=== PATIENT | male | born 1960 | race Caucasian/White ===

== ENCOUNTER → 2016-09-26 | Outpatient (CLI) | payer OTHER, MEDICARE | LOC: MW.CHPM 09:13 | PROVIDERS: ATTEND Anesthesiology | DX: Z51.81 Encounter for therapeutic drug level monitoring (principal); Z79.891 Long term (current) use of opiate analgesic | CPT/HCPCS: 80305 ==

== ENCOUNTER 2016-11-21 16:06 | Emergency (ER) | payer MEDICARE, OTHER ==
[2016-11-21] MEDS ORDERED: Diphtheria,Pertussis(Acell),Tetanus Vaccine 0.5 ML Syringe IM ONE (16:17)
--- NOTE | 2016-11-21 16:28 | EDM.PDOC ---
ED HPI Skin/Rash - General Chief Complaint: Laceration Stated Complaint: CUT THUMB Time Seen by Provider: 11/21/16 16:15 Source: Reports: Patient History Limitations: Reports: No limitations - History of Present Illness INITIAL COMMENTS - FREE TEXT/NARRATIVE: Presents reporting that he was working with a skill saw and cut his right thumb. Unknown tetanus. - Related Data Allergies Allergy/AdvReac Type Severity Reaction Status Date / Time No Known Allergies Allergy Verified 11/21/16 16:13 Home Meds: Ambulatory Orders Medication Instructions Recorded Confirmed Amitriptyline [Elavil] 50 mg PO BEDTIME 12/10/13 11/13/15 Metaxalone [Skelaxin] 800 mg PO QID 12/10/13 11/13/15 tiZANidine [Zanaflex] 2 mg PO DAILY 12/10/13 11/13/15 traMADol [Ultram] 50 mg PO Q4H PRN 12/10/13 11/13/15 Hydrocodone/Acetaminophen [[place] PO Q6HR 11/13/15 5-325] Pregabalin [Lyrica] 1 cap PO 11/13/15 Morphine 15 mg PO BID 11/21/16 11/21/16 Past Medical History HEENT History: Reports: None Cardiovascular History: Reports: Hypertension Respiratory History: Reports: None Gastrointestinal History: Reports: None Genitourinary History: Reports: None Musculoskeletal History: Reports: Neck pain, chronic Psychiatric History: Reports: None Endocrine/Metabolic History: Reports: None - Infectious Disease History Infectious Disease History: Reports: Chicken pox, Measles, Mumps, Shingles - Past Surgical History HEENT Surgical History: Reports: None GI Surgical History: Reports: Bariatric procedure, Cholecystectomy Musculoskeletal Surgical History: Reports: Other (see below) Other Musculoskeletal Surgeries/Procedures:: neck surgery Social & Family History - Family History Family Medical History: Noncontributory HEENT: Reports: None Cardiac: Reports: None - Tobacco Use Smoking Status *Q: Never Smoker Second Hand Smoke Exposure: No - Caffeine Use Caffeine Use: Reports: None - Alcohol Use Days Per Week of Alcohol Use: 0 - Recreational Drug Use Recreational Drug Use: No ED ROS GENERAL - Review of Systems Review Of Systems: ROS reveals no pertinent complaints other than HPI. ED EXAM, SKIN/RASH Exam: See Below General Appearance: alert, no apparent distress Ears: normal external exam Nose: normal inspection Throat/Mouth: Normal inspection Head: atraumatic Respiratory/Chest: no respiratory distress, lungs clear Cardiovascular: normal peripheral pulses GI/Abdominal: soft Back Exam: normal inspection Extremities: other (Right thumb centimeter laceration from the lateral nail bed around over the distal tip and down the palm are surface.) Neurological: alert, oriented Psychiatric: normal affect, normal mood Skin: Warm, Dry, Intact, Normal color, No rash ED SKIN PROCEDURES - Laceration/Wound Repair Right Distal Finger Lac/wound length in cm: 4 Appearance: subcutaneous Distal NVT: neuro & vascular intact Local anesthesia - Lidocaine (Xylocaine): 1% plain Local anesthetic volume: 5cc Skin prep: chlorhexidine (hibiciens) Exploration/Debridement/Repair: wound explored, in a bloodless field, explored to base, minimal debridement Closed with: sutures Suture size: 4-0 # of sutures: 8 Suture type: nylon, interrupted Course - Vital Signs Last Recorded V/S: Last Vital Signs Temp 36.8 C 11/21/16 16:10 Pulse 104 H 11/21/16 16:10 Resp 18 11/21/16 16:10 BP 134/91 H 11/21/16 16:10 Pulse Ox 97 11/21/16 16:10 - Orders/Labs/Meds Orders: Active Orders 24 hr Category Date Time Status Fingers Thumb Rt F5 [CR] Stat Exams 11/21/16 16:15 Ordered Departure - Departure Time of Disposition: 17:34 Disposition: Home, Self-Care 01 Condition: good Clinical Impression: Laceration Referrals: Elias Snow MD [Primary Care Provider] - Treasure Wilson MD [Physician] - Forms: ED Department Discharge Additional Instructions: 1. Keep wound clean and dry. 2. Watch for signs of infection : Redness, swelling, purulent drainage-- report promptly 3. Followup with Dr. Wilson due to open distal tuft fracture 4. Take your antibiotic twice daily for the next week. - My Orders Last 24 Hours: My Active Orders 11/21/16 16:15 Fingers Thumb Rt F5 [CR] Stat - Assessment/Plan Last 24 Hours: My Active Orders 11/21/16 16:15 Fingers Thumb Rt F5 [CR] Stat
[2016-11-21] MEDS ORDERED: Bacitracin Oint 1 GM U/D Packet TOP ONE (17:37)
[2016-11-21 18:02] VITALS: BP 152/97
--- NOTE | 2016-11-22 15:19 | CR ---
EXAM DATE: 11/21/16 PATIENT'S AGE: 56 Patient: JESSICA DUMONT Facility: [place], [place] Site . Site : [id number] Study: XRay Extremity Right thumb [id number]/[id number] 4:42:44 PM Ordering Physician: Doctor Stoll Final Report: INDICATION: Finger pain from table saw laceration TECHNIQUE: 1st Finger radiographs 3 views right COMPARISON: None FINDINGS: Bones: Alignment is normal. A linear fracture is present in the distal 1st phalanx tilt with small adjacent osseous bodies. Joint spaces: The metacarpophalangeal and interphalangeal joints are normal in appearance. Soft tissues: Soft tissue defect in the distal 1st digit is noted. No radiopaque foreign bodies are noted. IMPRESSION: 1. A linear fracture is present in the distal 1st phalanx tilt with small adjacent osseous bodies. Dictated by Ovi Duke MD @ 11/21/2016 4:49:26 PM Dictated by: Ovi Duke MD @ 11/21/2016 16:49:33 (Electronic Signature) Report Signed by Proxy and Original Signed Document filed in the Medical Record. [facility]
== END 2016-11-21 18:01 | disposition home or self-care (01) ==
LOC: MW.ED 16:06
DX: S61.011A Laceration without foreign body of right thumb without damage to nail, initial encounter (principal); I10 Essential (primary) hypertension; Z90.49 Acquired absence of other specified parts of digestive tract; Z98.890 Other specified postprocedural states; Z79.899 Other long term (current) drug therapy; W27.0XXA Contact with workbench tool, initial encounter
CPT/HCPCS: 12002; 73140-26-F5; 73140-F5; 90471; 90715; 99282; 99283-25

== ENCOUNTER → 2016-11-24 | Outpatient (CLI) | payer OTHER, MEDICARE | LOC: MW.CHPM 09:20 | PROVIDERS: ATTEND Anesthesiology | DX: Z51.81 Encounter for therapeutic drug level monitoring (principal); Z79.891 Long term (current) use of opiate analgesic | CPT/HCPCS: 80305 ==

== ENCOUNTER 2017-04-13 13:31 | Emergency (ER) | payer OTHER, MEDICARE ==
[2017-04-13 13:38] VITALS: BP 187/92
[2017-04-13] MEDS ORDERED: Morphine 4 MG/ML Syringe IVPUSH ONE (13:45)
[2017-04-13] MEDS ORDERED: HYDROmorphone 1 MG/ML Syringe IVPUSH ONE (14:34)
--- NOTE | 2017-04-13 15:09 | CR ---
EXAMINATION: Pelvis and bilateral hips HISTORY: Pain COMPARISON: 09/11/2012 TECHNIQUE: AP pelvis and 2 views of the hips FINDINGS: There is no acute osseous abnormality, dislocation, or fracture. The iliopectineal lines ar e intact. The SI joints are symmetric. Mild subchondral sclerosis and cystic change noted within the acetabula bilaterally. Hip joint spaces are grossly preserved. There is mild subchondral cystic mcdermott e also noted within the lateral left femoral head. Mild degenerative changes noted within the lower l umbar spine. IMPRESSION: 1. Mild degenerative changes within the hips bilaterally without acute findings. 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
--- NOTE | 2017-04-13 15:14 | CT ---
EXAMINATION: CT cervical spine HISTORY: Pain COMPARISON: 11/13/2015 TECHNIQUE: Axial CT images obtained through the cervical spine without contrast. Coronal and sagittal reconstructions obtained. FINDINGS: The cervical spinal alignment appears stable. Anterior fusion hardware is noted extending f rom C4 C6. Osseous vertebral body fusion extends from C4 to C7. There is a spinal stimulator device n oted with leads extending from the C2-C3 disc space inferior to C4. Overlying laminectomy changes not ed at these levels. Bone mineralization otherwise appears normal. No fracture or acute osseous abnorm ality demonstrated. There is a prominent right osteophyte disc complex noted at C4-C5 and C6-C7 with at least mild underlying spinal canal stenosis. Mild neural foraminal stenosis noted at multiple leve ls. No bulky cervical lymphadenopathy. The visualized lung apices are clear. Mild degenerative change s noted within the temporomandibular joints. IMPRESSION: 1. Moderate postoperative and degenerative changes noted within the cervical spine without acute find ings. 2. Spinal stimulator device noted extending from C2 to C4 laminectomy changes noted from C3 to C5.
--- NOTE | 2017-04-13 15:20 | CT ---
EXAMINATION: CT lumbar spine without contrast HISTORY: Pain COMPARISON: 08/24/2014 TECHNIQUE: Axial CT images obtained through the lumbar spine without contrast. Coronal and sagittal r econstructions obtained. FINDINGS: There is pronunciation of the normal lumbar lordosis with minimal anterolisthesis of L3 on L4. There is a mild chronic wedge deformity of L1. Chronic bilateral spondylolysis at L3 and chronic spondylolysis of L2 on the left. Prominent facet arthritic changes are noted throughout the lumbar sp ine. Laminectomy changes are noted extending from L3 to L5. The SI joints are symmetric. Bone mineral ization otherwise appears normal. No acute osseous abnormalities demonstrated. There is a moderate di ffuse disc bulge with likely moderate to severe spinal canal stenosis noted at L2-L3. Large diffuse p seudobulge with likely moderate spinal canal stenosis noted at L3-L4. Small diffuse disc bulge with a t least [id number] spinal canal stenosis noted at L4-L5. IMPRESSION: 1. No acute findings demonstrated within the lumbar spine. 2. Prominent postoperative and degenerative changes noted within the lumbar spine. This is most promi nent at L2-L3.
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
== END 2017-04-13 15:58 | disposition home or self-care (01) ==
LOC: MW.ED 13:31
DX: M54.5 Low back pain (principal); M54.2 Cervicalgia; Z79.899 Other long term (current) drug therapy; I10 Essential (primary) hypertension; Z90.49 Acquired absence of other specified parts of digestive tract; Z98.84 Bariatric surgery status; V43.92XA Unspecified car occupant injured in collision with other type car in traffic accident, initial encounter
CPT/HCPCS: 72125; 72131; 73521; 96374; 96375; 99285; J1170; J2270; 99283

== ENCOUNTER 2017-05-01 11:25 | Day surgery (SDC) | payer OTHER ==
[~2017-05-01 11:25] MED LIST: Betamethasone Acetate/Betamethasone Sod Phosphate 30 MG/5 ML MDV ONE; Iopamidol 408 MG/ML 50 ML SDV ONE; Lidocaine 2% 5 ML SDV ONE; Ropivacaine 0.5% 5 MG/ML 30 ML SDV ONE
--- NOTE | 2017-05-01 19:22 | OR ---
SURGEON: Josi Ayala D.O. DATE OF PROCEDURE: 05/01/2017 OR STAFF PRESENT: 1. Aye Wong RN. 2. Moises Ariza RN. WOUND CLASSIFICATION: I. PREOPERATIVE DIAGNOSES: Failed back surgery syndrome, low back pain with radiculopathy, chronic pain syndrome. POSTOPERATIVE DIAGNOSES: Failed back surgery syndrome, low back pain with radiculopathy, chronic pain syndrome. PROCEDURES PERFORMED: 1. Caudal epidural steroid injection. 2. Fluoroscopic guidance for needle placement. 3. Local with oral Valium for sedation. SCREENING QUESTIONS: The patient answered "no" to all of the following questions: 1. Are you allergic to latex? 2. Do you have a bleeding disorder? 3. Do you have any current local or systemic infections? 4. Are you taking any anti-inflammatories or blood thinners? 5. Do you have any joint replacements, heart valve replacements, or a pacemaker? DESCRIPTION OF PROCEDURE: The patient had the procedure thoroughly explained including all possible risks, benefits and alternatives. Consent was signed in my clinic indicating understanding and willingness to proceed. The patient presented to [facility] and was escorted to the dressing room to disrobe and change into a hospital gown. Preoperative vital signs were taken and stable. The patient reported that Valium was taken prior to the procedure. The patient was brought back to the procedure room and placed in the prone position on the procedure room table. A pillow was placed under the hips in order to flatten the lumbar lordosis. The back was prepped with ChloraPrep and sterilely draped. All personnel in the operating room were dressed in appropriate attire including surgical scrubs, head and shoe covers. This was to ensure sterility while in the treatment room. During the time fluoroscopy was in use, all personnel in the operating room wore lead turner with thyroid collars. Sterile technique was used throughout the procedure. The patient was awake and conversant throughout the procedure. There was no evidence of infection at the site of needle insertion. Skeletal landmarks were identified under fluoroscopy for the caudal epidural. Skin was anesthetized with 2% lidocaine with a sterile 27-gauge 1.5 inch needle. Then a 20-gauge Tuohy epidural needle was placed in the epidural space with loss of resistance technique under fluoroscopic guidance. No heme, cerebrospinal fluid, or paresthesias were noted. Isovue-200 contrast dye was injected in 0.2 cubic centimeter increments and seen to outline the epidural space in both AP and lateral views. There was no intravascular flow pattern observed under live fluoroscopy. Then 12 milligrams of Celestone was slowly injected after negative aspiration. The patient tolerated the procedure well. Vital signs were stable during and after the procedure. The staff escorted the patient to the recovery area and the patient was released in stable condition after a brief stay in the recovery room monitored by the nurse. The patient was given both oral and written discharge and follow up instructions with recommendation to follow up given for 2-3 weeks. The patient voiced understanding including understanding of those signs and symptoms that would require emergency care. The patient knows how to contact the office if there are any additional problems or questions in the meantime. PREOPERATIVE PAIN: 8/10. POSTOPERATIVE PAIN: 7/10. PLAN: Followup in the Pain Clinic in 3 weeks. TABITHA / KS[place] /[id number] JHONY
== END 2017-05-01 12:53 | disposition home or self-care (01) ==
LOC: MW.SDS 11:25
PROVIDERS: ATTEND Anesthesiology
DX: G89.4 Chronic pain syndrome (principal); M54.5 Low back pain; M54.16 Radiculopathy, lumbar region; M96.1 Postlaminectomy syndrome, not elsewhere classified; Z79.891 Long term (current) use of opiate analgesic; Z88.8 Allergy status to other drugs, medicaments and biological substances; Z79.899 Other long term (current) drug therapy; Z98.890 Other specified postprocedural states; F10.20 Alcohol dependence, uncomplicated; F15.90 Other stimulant use, unspecified, uncomplicated
CPT/HCPCS: 62323; J0702; J2795; Q9966

== ENCOUNTER 2017-05-22 10:58 | Day surgery (SDC) | payer OTHER ==
[~2017-05-22 10:58] MED LIST changes: -Betamethasone Acetate/Betamethasone Sod Phosphate 30 MG/5 ML MDV ONE; -Iopamidol 408 MG/ML 50 ML SDV ONE; +Lactated Ringers 1,000 ML IV SCH; -Lidocaine 2% 5 ML SDV ONE; -Ropivacaine 0.5% 5 MG/ML 30 ML SDV ONE; +Sodium Chloride 0.9% 10 ML Syringe FLUSH PRN; +Sodium Chloride 0.9% 2.5 ML Syringe FLUSH PRN
[2017-05-22] MEDS ORDERED: Lidocaine 2% 5 ML SDV ONE (13:00)
[2017-05-22] MEDS ORDERED: Propofol 200 MG/20 ML SDV ONE (13:01)
[2017-05-22] MEDS ORDERED: Midazolam 1 MG/ML 2 ML SDV ONE (13:01)
[2017-05-22] MEDS ORDERED: fentaNYL 100 MCG/2 ML SDV ONE ×2 (13:01→13:04)
[2017-05-22] MEDS ORDERED: Ondansetron 4 MG/2 ML SDV ONE (13:06)
[2017-05-22] MEDS ORDERED: Ketorolac 30 MG/ML SDV ONE (13:06)
--- NOTE | 2017-05-22 13:48 | PCM.PREANE ---
Preanesthetic Assessment - Procedure Proposed Procedure: Cystoscopy - Anesthesia/Transfusion/Family Hx Anesthesia History: Prior Anesthesia Without Reaction Family History of Anesthesia Reaction: No Transfusion History: Prior Transfusion Without Reaction Additional History: Complicated neuro hx with old cervical surgeries, electrostimulator (MRI compatible), and recent lumbar injury with a surgical diagnosis; and discovery of hematuria. - Review of Systems General: Other (Pain - lumbar) Pulmonary: No Symptoms Cardiovascular: Other (HTN - treated) Gastrointestinal: No Symptoms Neurological: Paresthesia, Pre-Existing Deficit, Gait Disturbance Other: Reports: Neck Pain, Anxiety - Physical Assessment NPO Status Date: 05/21/17 NPO Status Time: 21:30 O2 Sat by Pulse Oximetry: 99 Respiratory Rate: 16 Vital Signs: Last Vital Signs Temp 98.2 F 05/22/17 11:42 Pulse 86 05/22/17 11:42 Resp 16 05/22/17 11:42 BP 183/94 H 05/22/17 11:42 Pulse Ox 99 05/22/17 11:42 Height: 5 ft 10 in Weight: 198 lb ASA Class: 3 Mental Status: Alert & Oriented x3 Airway Class: Mallampati = 3 Dentition: Reports: [place](s) (implanted teeth) Thyro-Mental Finger Breadths: 3 Mouth Opening Finger Breadths: 2 ROM/Head Extension: Limited/Partial Lungs: Clear to Auscultation, Normal Respiratory Effort Cardiovascular: Regular Rate, Regular Rhythm, No Murmurs - Allergies Allergies/Adverse Reactions: Allergies Allergy/AdvReac Type Severity Reaction Status Date / Time No Known Allergies Allergy Verified 12/03/16 12:30 - Blood Blood Available: No Product(s) Available: None - Acknowledgements Anesthesia Type Planned: General Anesthesia (vs MAC; possible LMA) Pt an Appropriate Candidate for the Planned Anesthesia: Yes Alternatives and Risks of Anesthesia Discussed w Pt/Guardian: Yes Pt/Guardian Understands and Agrees with Anesthesia Plan: Yes PreAnesthesia Questionnaire HEENT History: Reports: Other (See Below) Other HEENT History: wears glasses, has dental implants Cardiovascular History: Reports: Hypertension Respiratory History: Reports: None Gastrointestinal History: Reports: None Genitourinary History: Reports: None Musculoskeletal History: Reports: Arthritis, Back Pain, Chronic, Neck Pain, Chronic Other Musculoskeletal History: chronic pain syndrome Psychiatric History: Reports: Depression Endocrine/Metabolic History: Reports: None Hematologic History: Reports: Blood Transfusion(s) Other Hematologic History: blood transfusion with one neck surgery - Infectious Disease History Infectious Disease History: Reports: Chicken Pox, Measles, Mumps, Shingles - Past Surgical History Head Surgeries/Procedures: Reports: None HEENT Surgical History: Reports: Oral Surgery GI Surgical History: Reports: Bariatric Procedure, Cholecystectomy Other GI Surgeries/Procedures: gastric bypass Neurological Surgical History: Reports: C-Spine, Lumbar Spine Other Neurological Surgeries/Procedures: low back surgery x5, neck surgery x10 Musculoskeletal Surgical History: Reports: Knee Replacement, Other (See Below) Other Musculoskeletal Surgeries/Procedures:: spinal cord stimulator insertion, lara knee replacement - SUBSTANCE USE Smoking Status *Q: Never Smoker Second Hand Smoke Exposure: No Days Per Week of Alcohol Use: 0 Recreational Drug Use History: No - HOME MEDS Home Medications: Home Meds Amitriptyline [Elavil] 1 - 3 tab PO BEDTIME 12/10/13 [History] Metaxalone [Skelaxin] 800 mg PO QID 12/10/13 [History] tiZANidine [Zanaflex] 1 - 3 tab PO DAILY PRN 12/10/13 [History] traMADol [Ultram] 1 - 2 tab PO Q4H PRN 12/10/13 [History] Pregabalin [Lyrica] 1 - 2 cap PO BID 11/13/15 [History] Morphine 15 mg PO BID 11/21/16 [History] Hydrocodone/Acetaminophen [Hydrocodon-Acetaminoph 7.5-325] 1 tab PO ASDIRECTED PRN 05/18/17 [History] Ketamine Powder 1 dose TOP ASDIRECTED PRN 05/18/17 [History] Ketamine [place] 1 spray NASBOTH ASDIRECTED PRN 05/18/17 [History] amLODIPine [Norvasc] 5 mg PO DAILY 05/18/17 [History] - CURRENT (IN HOUSE) MEDS Current Meds: Current Medications Lactated Ringer's (Ringers, Lactated) 1,000 mls @ 100 mls/hr IV ASDIRECTED SEEMA Last Admin: 05/22/17 11:30 Dose: 100 mls/hr Sodium Chloride (Saline Flush) 10 ml FLUSH ASDIRECTED PRN PRN Reason: Keep Vein Open Sodium Chloride (Saline Flush) 2.5 ml FLUSH ASDIRECTED PRN PRN Reason: Keep Vein Open Discontinued Medications Fentanyl (Sublimaze) Confirm Administered Dose 100 mcg .ROUTE .STK-MED ONE Stop: 05/22/17 13:02 Fentanyl (Sublimaze) Confirm Administered Dose 100 mcg .ROUTE .STK-MED ONE Stop: 05/22/17 13:05 Ketorolac Tromethamine (Toradol) Confirm Administered Dose 30 mg .ROUTE .STK- MED ONE Stop: 05/22/17 13:07 Lidocaine (Xylocaine-Mpf 2%) Confirm Administered Dose 10 ml .ROUTE .STK-MED ONE Stop: 05/22/17 13:01 Midazolam HCl (Versed 1 Mg/Ml) Confirm Administered Dose 2 mg .ROUTE .STK-MED ONE Stop: 05/22/17 13:02 Ondansetron HCl (Zofran) Confirm Administered Dose 4 mg .ROUTE .STK-MED ONE Stop: 05/22/17 13:07 Propofol (Diprivan 20 Ml) Confirm Administered Dose 400 mg .ROUTE .STK-MED ONE Stop: 05/22/17 13:02
--- NOTE | 2017-05-22 14:13 | PCM.POSTAN ---
POST ANESTHESIA ASSESSMENT - MENTAL STATUS Mental Status: Alert, Oriented - RESPIRATORY Respiratory Status: Respiratory Rate WNL, Airway Patent, O2 Saturation Stable - CARDIOVASCULAR CV Status: Pulse Rate WNL, Blood Pressure Stable - GASTROINTESTINAL GI Status: No Symptoms - PAIN Pain Score: 0 - POST OP HYDRATION Hydration Status: Adequate & Stable
--- NOTE | 2017-05-22 14:55 | PCM48HPAN ---
Post Anesthesia Note - EVALUATION WITHIN 48HRS OF ANESTHETIC Vital Signs in Normal Range: Yes Patient Participated in Evaluation: Yes Respiratory Function Stable: Yes Airway Patent: Yes Cardiovascular Function Stable: Yes Hydration Status Stable: Yes Pain Control Satisfactory: Yes Nausea and Vomiting Control Satisfactory: Yes Mental Status Recovered: Yes
[2017-05-22 15:19] VITALS: BP 145/84
--- NOTE | 2017-05-22 18:12 | OR ---
SURGEON: aBri Prajapati M.D. DATE OF PROCEDURE: 05/22/2017 PREOPERATIVE DIAGNOSIS: Gross hematuria. POSTOPERATIVE DIAGNOSIS: Normal cystoscopy. DESCRIPTION OF PROCEDURE: The patient was given general sedation, placed in dorsal lithotomy position, prepped and draped in sterile drapes. A 22-Bengali scope was introduced into the bladder under direct vision without difficulty. The bulbous urethra showed a wide caliber stricture that allowed the 22-Bengali to go in without resistance so that was left alone. The prostate and prostatic urethra were open. The inside of the bladder was normal. The patient tolerated the procedure well and was moved to recovery room in good condition. MAN / KOSTA /[id number]
== END 2017-05-22 14:55 | disposition home or self-care (01) ==
LOC: MW.SDS 10:58
PROVIDERS: ATTEND Urology
DX: R31.0 Gross hematuria (principal); M54.12 Radiculopathy, cervical region; G89.4 Chronic pain syndrome; M96.1 Postlaminectomy syndrome, not elsewhere classified; M79.7 Fibromyalgia; F32.9 Major depressive disorder, single episode, unspecified; I10 Essential (primary) hypertension; Z88.8 Allergy status to other drugs, medicaments and biological substances; Z79.891 Long term (current) use of opiate analgesic; Z79.899 Other long term (current) drug therapy; Z96.89 Presence of other specified functional implants; Z90.49 Acquired absence of other specified parts of digestive tract; Z96.659 Presence of unspecified artificial knee joint; Z98.890 Other specified postprocedural states
CPT/HCPCS: 52000; J1885; J2250; J2405; J3010; J7120; 00910; J2704

== ENCOUNTER 2020-10-10 21:56 | Emergency (ER) | payer OTHER ==
--- NOTE | 2020-10-10 21:59 | EDM.PDOC ---
ED HPI GENERAL MEDICAL PROBLEM - General Stated Complaint: NECK PAIN Time Seen by Provider: 10/10/20 21:58 Source of Information: Reports: Patient History Limitations: Reports: No Limitations - History of Present Illness INITIAL COMMENTS - FREE TEXT/NARRATIVE: 59-year-old male past medical history C-spine fracture status post cervical fusion presents for neck spasm. Patient notes that he sees a pain management physician and does struggle with chronic pain of the neck. He notes that he receives trigger point injections very frequently with last injection 2 weeks ago. He states this normally helps with his pain immensely. He is also on pain medication and muscle relaxants at home. States the pain today started a couple hours prior to arrival and became unbearable. He states that he wanted to get a trigger point injection before it got too bad. Denies one-sided weakness. Neck Pain Score (Numeric/FACES): 10 - Related Data Allergies Allergy/AdvReac Type Severity Reaction Status Date / Time eszopiclone [From Lunesta] Allergy Hallucinati Verified 10/10/20 22:06 ons zolpidem [From Ambien] Allergy Hallucinati Verified 10/10/20 22:06 ons Home Meds: Home Meds Metaxalone [Skelaxin] 800 mg PO QID 12/10/13 [History] RX: Amitriptyline [Elavil] 1 - 3 tab PO BEDTIME 12/10/13 [History] RX: tiZANidine [Zanaflex] 1 - 3 tab PO DAILY PRN 12/10/13 [History] traMADol [Ultram] 1 - 2 tab PO Q4H PRN 12/10/13 [History] Pregabalin [Lyrica] 1 - 2 cap PO BID 11/13/15 [History] RX: Morphine 15 mg PO BID 11/21/16 [History] Hydrocodone/Acetaminophen [Hydrocodon-Acetaminoph 7.5-325] 1 tab PO ASDIRECTED PRN 05/18/17 [History] Ketamine Powder 1 dose TOP ASDIRECTED PRN 05/18/17 [History] Ketamine [place] 1 spray NASBOTH ASDIRECTED PRN 05/18/17 [History] RX: amLODIPine [Norvasc] 5 mg PO DAILY 05/18/17 [History] Past Medical History HEENT History: Reports: None Other HEENT History: wears glasses, has dental implants Cardiovascular History: Reports: Hypertension Respiratory History: Reports: None Gastrointestinal History: Reports: None Genitourinary History: Reports: None Musculoskeletal History: Reports: Neck Pain, Chronic Other Musculoskeletal History: chronic pain syndrome Psychiatric History: Reports: None Endocrine/Metabolic History: Reports: None Hematologic History: Reports: Blood Transfusion(s) Other Hematologic History: blood transfusion with one neck surgery - Infectious Disease History Infectious Disease History: Reports: Chicken Pox, Measles, Mumps, Shingles - Past Surgical History HEENT Surgical History: Reports: None Musculoskeletal Surgical History: Reports: Other (See Below) Other Musculoskeletal Surgeries/Procedures:: neck surgery Social & Family History - Family History Family Medical History: No Pertinent Family History HEENT: Reports: None Cardiac: Reports: None - Caffeine Use Caffeine Use: Reports: None ED ROS GENERAL - Review of Systems Review Of Systems: Comprehensive ROS is negative, except as noted in HPI. ED EXAM, GENERAL - Physical Exam Exam: See Below Exam Limited By: No Limitations General Appearance: Alert, WD/WN, No Apparent Distress Head: Atraumatic, Normocephalic Neck: Other (post-op scar midline, muscle spasm and TTP of right paracervical musculature) Respiratory/Chest: No Respiratory Distress, No Accessory Muscle Use Cardiovascular: Normal Peripheral Pulses Extremities: Normal Inspection Neurological: Alert Psychiatric: Normal Affect, Normal Mood Skin Exam: Warm, Dry, Intact ED GENERAL MEDICAL PROCEDURES - Additional/Other Procedure(s) Other (Free Text) Procedure(s): Trigger point injections x4 at level C7 just lateral to SP utilizing half-half mixture of lidocaine 1% and bupivacaine. Patient had no complications and reports pain improvement after injections. Course - Vital Signs Last Recorded V/S: Last Vital Signs Temp 97.4 F 10/10/20 22:07 Pulse 75 10/10/20 22:07 Resp 18 10/10/20 22:07 BP 125/77 10/10/20 22:07 Pulse Ox 97 10/10/20 22:07 - Orders/Labs/Meds Meds: Medications Discontinued Medications Generic Name Dose Route Start Last Admin Trade Name Freq PRN Reason Stop Dose Admin Bupivacaine HCl Confirm 10/10/20 22:05 10/10/20 22:11 Bupivacaine 0.25% 10 Ml Sdv Administered 10/10/20 22:06 Not Given Dose 10 ml .ROUTE .STK-MED ONE Bupivacaine HCl 10 ml 10/10/20 22:11 10/10/20 22:12 Bupivacaine 0.25% 10 Ml Sdv INJECT 10/10/20 22:12 10 ml ONETIME ONE Administration Diazepam 5 mg 10/10/20 22:19 10/10/20 23:07 Diazepam 5 Mg Tab PO 10/10/20 22:20 5 mg ONETIME ONE Administration Ketorolac Tromethamine 30 mg 10/10/20 22:19 10/10/20 23:07 Ketorolac 30 Mg/Ml Sdv IM 10/10/20 22:20 30 mg ONETIME ONE Administration Lidocaine HCl 5 ml 10/10/20 22:01 10/10/20 22:11 Lidocaine 1% 5 Ml Sdv INJECT 10/10/20 22:02 5 ml ONETIME ONE Administration Lidocaine HCl Confirm 10/10/20 22:06 10/10/20 22:11 Lidocaine 1% 5 Ml Sdv Administered 10/10/20 22:07 Not Given Dose 5 ml .ROUTE .STK-MED ONE - Re-Assessments/Exams Free Text/Narrative Re-Assessment/Exam: 10/10/20 22:28 Trigger point injection as described in procedure note. We will also give Toradol and Valium. We will follow-up reassessment and anticipate discharge home. 10/10/20 23:10 Patient is reporting alleviation of symptoms. He notes that he is always in pain and will never get his pain to a 0. Will discharge with follow-up with his pain management physician. Departure - Departure Time of Disposition: 23:11 Disposition: Home, Self-Care 01 Condition: Good Clinical Impression: Neck pain, Muscle spasm - Discharge Information Instructions: Muscle Cramps and Spasms, [id number] Referrals: Elias Snow MD [Primary Care Provider] - Additional Instructions: The following information is given to patients seen in the emergency department who are being discharged to home. This information is to outline your options for follow-up care. We provide all patients seen in our emergency department with a follow-up referral. The need for follow-up, as well as the timing and circumstances, are variable depending upon the specifics of your emergency department visit. If you don't have a primary care physician on staff, we will provide you with a referral. We always advise you to contact your personal physician following an emergency department visit to inform them of the circumstance of the visit and for follow-up with them and/or the need for any referrals to a consulting specialist. The emergency department will also refer you to a specialist when appropriate. This referral assures that you have the opportunity for follow-up care with a specialist. All of these measure are taken in an effort to provide you with optimal care, which includes your follow-up. Under all circumstances we always encourage you to contact your private physi uriel who remains a resource for coordinating your care. When calling for follow- up care, please make the office aware that this follow-up is from your recent emergency room visit. If for any reason you are refused follow-up, please contact the [facility] Emergency Department at and asked to speak to the emergency department charge nurse. Please follow up with your primary care physician. If you do not have a primary care physician, see below: [facility] [address] [place] [id number] [facility] [address] [place] [id number] [facility] [address] [place] [id number] Sepsis Event Note (ED) - Focused Exam Vital Signs: Vital Signs Temp Pulse Resp BP Pulse Ox 10/10/20 22:07 97.4 F 75 18 125/77 97
[2020-10-10] MEDS ORDERED: Bupivacaine 0.25% 10 ML SDV ONE (22:05)
[2020-10-10] MEDS ORDERED: Bupivacaine 0.25% 10 ML SDV INJECT ONE (22:11)
[2020-10-10] MEDS ORDERED: Ketorolac 30 MG/ML SDV IM ONE (22:19)
[2020-10-10] MEDS ORDERED: Diazepam 5 MG Tab PO ONE (22:19)
[2020-10-10] MEDS ORDERED: HYDROmorphone 1 MG/ML Syringe IM ONE (23:15)
[2020-10-10 23:45] VITALS: BP 150/91; PULSE 97
== END 2020-10-10 23:45 | disposition home or self-care (01) ==
LOC: MW.ED 21:56
DX: M62.838 Other muscle spasm (principal); I10 Essential (primary) hypertension; Z79.899 Other long term (current) drug therapy; Z88.8 Allergy status to other drugs, medicaments and biological substances
CPT/HCPCS: 20552; 96372; 99283; A9270; J1170; J1885; J3490; 20553; 99282

== ENCOUNTER 2022-08-26 11:08 | Emergency (ER) | payer BC, MEDICARE, OTHER ==
[2022-08-26 12:21] VITALS: BP 132/79; PULSE 79
[2022-08-26 12:48] LABS: CORONAVIRUS COVID-19 NAA NEGATIVE (NEGATIVE); INFLUENZA A NAA NEGATIVE (NEGATIVE); INFLUENZA B NAA NEGATIVE (NEGATIVE); RESPIRATORY SYNCYTIAL VIR NAA NEGATIVE (NEGATIVE)
== END 2022-08-26 12:21 | disposition home or self-care (01) ==
LOC: MW.ED 11:08
DX: J32.9 Chronic sinusitis, unspecified (principal); I10 Essential (primary) hypertension; Z88.8 Allergy status to other drugs, medicaments and biological substances; Z79.899 Other long term (current) drug therapy; Z90.49 Acquired absence of other specified parts of digestive tract; Z20.822 Contact with and (suspected) exposure to COVID-19
CPT/HCPCS: 0241U; 99283